=== PATIENT | male | born 1975 | race Native Hawaiian/Other Pacific Islander ===

== ENCOUNTER 2017-02-21 00:41 | Emergency (ER) | payer OTHER ==
[~2017-02-21] VITALS: Ht 177.8 cm; Wt 117.9 kg
== END 2017-02-21 03:12 | disposition home or self-care (01) ==
LOC: ED 00:41
DX: M54.5 Low back pain (principal); S39.012A Strain of muscle, fascia and tendon of lower back, initial encounter; X50.9XXA Other and unspecified overexertion or strenuous movements or postures, initial encounter; Y92.239 Unspecified place in hospital as the place of occurrence of the external cause
CPT/HCPCS: 96372; 99282; J1100; J1885; J2175; J2405

== ENCOUNTER 2017-02-26 20:00 | Outpatient (CLI) | payer OTHER | END 2017-02-26 22:00 | disposition home or self-care (01) | LOC: RAD 20:00 | DX: M54.17 Radiculopathy, lumbosacral region (principal) ==

== ENCOUNTER 2017-03-11 12:33 | Outpatient (CLI) | payer OTHER | END 2017-03-11 14:00 | disposition home or self-care (01) | LOC: MRI 12:33 | DX: M54.17 Radiculopathy, lumbosacral region (principal) ==

== ENCOUNTER 2017-04-22 16:07 | Outpatient (CLI) | payer OTHER ==
[2017-04-22 16:22] LABS: PLATELET COUNT 208 K/uL (142-355)
[2017-04-22 17:31] LABS: POTASSIUM 3.8 mmol/L (3.6-5.2); SODIUM 138 mmol/L (136-145)
== END 2017-04-22 17:10 | disposition home or self-care (01) ==
LOC: LAB 16:07
PROVIDERS: Family Medicine
DX: R53.83 Other fatigue (principal); E53.8 Deficiency of other specified B group vitamins; E78.2 Mixed hyperlipidemia; E55.9 Vitamin D deficiency, unspecified
CPT/HCPCS: 80053; 80061; 82306; 82607; 84403; 84443; 85027

== ENCOUNTER 2017-04-27 22:49 | Outpatient (CLI) | payer OTHER | END 2017-04-27 23:49 | disposition home or self-care (01) | LOC: INF 22:49 | DX: M54.89 Other dorsalgia (principal) | CPT/HCPCS: 96372; J1885; J2930 ==

== ENCOUNTER 2019-01-17 08:58 | Outpatient (CLI) | payer BC | END 2019-01-17 19:11 | disposition home or self-care (01) | LOC: MRI 08:58 | DX: M47.26 Other spondylosis with radiculopathy, lumbar region (principal); M51.36 Other intervertebral disc degeneration, lumbar region; M51.16 Intervertebral disc disorders with radiculopathy, lumbar region ==

== ENCOUNTER 2019-07-21 11:34 | Outpatient (CLI) | payer OTHER ==
[2019-07-21 12:32] LABS: PLATELET COUNT 244 K/uL (142-355)
[2019-07-21 13:29] LABS: POTASSIUM 3.8 mmol/L (3.6-5.2)
== END 2019-07-21 19:47 | disposition home or self-care (01) ==
LOC: RAD 11:34
PROVIDERS: Registered Nurse
DX: Z01.818 Encounter for other preprocedural examination (principal); E34.9 Endocrine disorder, unspecified; E03.8 Other specified hypothyroidism
CPT/HCPCS: 36415; 80048; 84402; 84403; 84439; 84443; 85027

== ENCOUNTER 2023-01-28 08:04 | Outpatient (CLI) | payer OTHER | END 2023-01-28 22:03 | disposition home or self-care (01) | LOC: RAD 08:04 | PROVIDERS: ATTEND Internal Medicine | DX: Z02.71 Encounter for disability determination (principal) ==